=== PATIENT | female | born 1960 | race Caucasian/White ===

== ENCOUNTER 2018-06-15 22:30 | Outpatient (REF) | payer OTHER, SELFPAY ==
[2018-06-15 22:52] LABS: Anion Gap 8.4 mmol/L (3-11); BUN 22 mg/dL (7-18); CO2 26.6 mmol/L (21.0-32.0); CREATININE 1.12 mg/dL (0.55-1.02); Calcium 8.8 mg/dL (8.5-10.1); Chloride 104 mmol/L (98-107); Cholesterol 217 mg/dL (50-200); Estimated GFR 49.97 (mL/min/1.73m2); Glucose 89 mg/dL (70-100); HDL Cholesterol 30 mg/dL (40-60); LDL CHOLESTEROL 137 mg/dL (<100); Potassium 3.9 mmol/L (3.5-5.1); Sodium 139 mmol/L (136-145); Triglyceride 343 mg/dL (30-150)
== END 2018-06-15 22:50 ==
LOC: NCHCN 22:30
PROVIDERS: PCP Family Medicine; Visit Provider Family Medicine
DX: Z00.00 Encounter for general adult medical examination without abnormal findings (principal); Z13.228 Encounter for screening for other metabolic disorders; Z13.220 Encounter for screening for lipoid disorders
CPT/HCPCS: 80048; 80061; 83721

== ENCOUNTER 2018-10-27 12:25 | Outpatient (CLI) | payer OTHER, SELFPAY ==
--- NOTE | 2018-10-27 16:12 | DI.MAMMO_ITS ---
SYMPTOM/DIAGNOSIS: SCREENING, Z12.31 MAMMOGRAMS: Mammograms were interpreted according to the usual protocol including computer analysis with CAD system, tomosynthesis and C view imaging. The breasts are of moderate density with fairly symmetrical distribution of fibroglandular tissue. No dominant mass or clumped microcalcification is identified in either breast. The current examination is compared with previous examination of 06/28/13 which was an outside study. There is a new lobulated nodule in the upper outer quadrant of the left breast which probably represents an intramammary lymph node. I cannot absolutely confirm lymph node architecture and this was not present on the previous examination. Spot compression views and breast ultrasound are requested on the left to evaluate this finding. No additional change is seen. CONCLUSION: Additional mammographic views of left breast and left breast ultrasound are requested as described above. Category 0. Breast density, category B. MQSA ASSESSMENT OF FINDINGS: Incomplete: Needs additional imaging evaluation. Category 0. Patient will receive a letter notifying them of these results. BI-RADS category B. There are scattered areas of fibroglandular density.
== END 2018-10-27 12:45 ==
PROVIDERS: PCP Family Medicine; Visit Provider Family Medicine
DX: Z12.31 Encounter for screening mammogram for malignant neoplasm of breast (principal); R92.8 Other abnormal and inconclusive findings on diagnostic imaging of breast
CPT/HCPCS: 77063; 77067

== ENCOUNTER 2018-11-10 00:56 | Outpatient (CLI) | payer OTHER, SELFPAY ==
--- NOTE | 2018-11-10 10:30 | DI.COMBO_ITS ---
SYMPTOMS/DIAGNOSIS: F/U MAMMO, NEW LOBULATED NODULE IN UPPER OUTER QUADRANT ADDITIONAL VIEWS OF THE LEFT BREAST AND LEFT BREAST ULTRASOUND: Additional images are interpreted according to the usual protocol including tomosynthesis and 2D imaging. CC and MLO spot compression views were performed of an area of nodularity in the posterior upper outer quadrant. There is a 10 mm circumscribed lobulated nodule in the upper outer quadrant consistent with an intramammary lymph node. No suspicious masses are seen. No cyst or mass is identified by ultrasound. Lymph node could not be identified. IMPRESSION: Category 3, probably benign mammogram. A 6 month follow up left mammogram is recommended. Breast density Category B. MQSA ASSESSMENT OF FINDINGS: Probably benign. Six month follow-up recommended. Category 3. Patient will receive a letter notifying them of these results. BI-RADS category B. There are scattered areas of fibroglandular density.
== END 2018-11-10 01:16 ==
PROVIDERS: PCP Family Medicine; Visit Provider Family Medicine
DX: Z12.31 Encounter for screening mammogram for malignant neoplasm of breast (principal); R92.8 Other abnormal and inconclusive findings on diagnostic imaging of breast; N63.21 Unspecified lump in the left breast, upper outer quadrant
CPT/HCPCS: 76642; 77063; 77067

== ENCOUNTER 2019-01-09 08:56 | Day surgery (SDC) | payer OTHER, SELFPAY ==
--- NOTE | 2019-01-09 06:56 | W.COLOREPORT ---
Date of service: 01/09/19 Time of Service: 09:56 Colonoscopy Report Date of procedure: 01/09/19 Pre-op diagnosis general: Hx of colon Polyps Post-op diagnosis procedure note: other (mild diverticulosis, polyps) Procedure: Colonoscopy with polypectomy by cold forceps Surgeon: Fiorella Winn Anesthesia proc note operative: other (General/ ASA 2/ Jessica Vernon CRNA and Sarmad Isidro CRNA) Estimated blood loss (mL): 3 Pathology: other (ascending and descending polyps <0.5 cm) Complications: None Disposition: no change Indications: Mrs. Arguelles is a pleasant 58-year-old female who was seen in the office for a follow-up colonoscopy. She had a colonoscopy in 2013 and she was found to have a tubular adenoma. There is no family history of colon cancer. Risks, benefits and complications have been reviewed. Complications include but are not limited to bleeding, pain, perforation, missed small lesion/polyp, sore throat, aspiration and adverse reaction to the medications. Questions were entertained and answered to their satisfaction and they wished to proceed. No guarantees were given or implied. Prep: Miralax/Dulcolax Procedure Start Time: 09:56 Procedure End Time: 10:22 Retraction Time: 22 minutes Findings: 2 small sessile polyps mild sigmoid diverticulosis Procedure Description: After informed consent was obtained the patient was taken to the procedure room and placed in a left decubitous position. Monitors were applied and a time out was done. The patients name, date of , procedure, allergies to medications and metal in their body was reviewed. The patient was then sedated. Once sedated and comfortable a rectal exam was done. External exam was normal. Internal exam revealed a normal sphincter tone and no palpable masses. The scope was then introduced and retro-flexed. One internal hemorrhoidal skin tag was identified. The scope was then advanced to the cecum without difficulty. The TI and appendiceal orifice were identified. The prep was good. The scope was then slowly retracted over 22 minutes back into the rectum. Polyps were removed in the descending colon and ascending colon with cold forceps. There was mild diverticulosis noted in the sigmoid colon. The scope was removed and the patient was woken up and taken back to Same day surgery in stable condition. The patient tolerated the procedure well and there were no immediate complications. Follow up: The patient should follow up in 3-5 years unless they develop changes in bowel habits or other new gastrointestinal complaints.
--- NOTE | 2019-01-09 06:58 | W.PM.DSUDISC ---
Discharge Plan Disposition Patient Disposition: HOME Condition: Good Discharge Details Reason For Visit: Hx of polyps/screening colo Attending Provider: Fiorella Winn Primary Care Provider: Malu Thakur Home Meds and New Rx's Prescriptions: Continued losartan-hydrochlorothiazide [Hyzaar] 50-12.5 mg tablet 1 tab PO DAILY RF: 0 propranolol 10 mg tablet 10 mg PO BID PRNRF: 0 eletriptan 20 mg tablet 20 mg PO ONCE PRNRF: 0 clobetasol 0.05 % lotion 1 applic TP BID PRNRF: 0 Discontinued polyethylene glycol 3350 17 gram/dose powder 238 g PO ONCE Qty: 238 RF: 0 bisacodyl [Dulcolax (bisacodyl)] 5 mg tablet,delayed release (DR/EC) 5 mg PO ONCE Qty: 4 RF: 0 Discharge Instructions Instructions: Colonoscopy (DC), Colorectal Polyps (DC), Diverticulosis (DC) Additional Instructions: Findings: 2 small polyps mild diverticulosis Follow up: 3-5 years Please call if you develop: fevers >101.5 Nausea or Vomiting Abdominal pain that is not transient DAY SURGERY UNIT POST COLONOSCOPY INSTRUCTIONS 1. Because there will be medication in your system for the next 24 hours, you may feel a little sleepy. Your coordination will be affected. Therefore: a. Do not drive or operate dangerous equipment for 24 hours. b. Do not drink alcohol beverages for 24 hours (not even beer). c. Plan to go home and rest for the day. 2. Generally there are no restrictions on your activity after a day or so has gone by, but you may feel a bit fatigued for a few days. 3 After you arrive home you may have a light meal and return to a normal diet as you can tolerate it without feeling sick to your stomach. 4. After surgery, you may feel pain or discomfort. This should be only transient, but if it persists please contact your doctor. 5. If there are any questions regarding the findings of your procedure, please feel free to contact your doctor. 6. If you are unable to contact your doctor with a problem, contact the hospital at [phone]. 7. Continue all your regular medications unless directed otherwise. I understand the above instructions and have no questions. Signature of Patient or Responsible Adult Escort Date/Time Name of Responsible Adult Escort Signature of Nurse Date/Time Activity:: Activity as Tolerated Diet:: high fiber diet Discharge Orders Discharge Orders: Discharge Order (Routine); Ordered 01/09/19 Ordered By: Fiorella Winn DS: Diagnosis Discharge Diagnosis (1) Tubular adenoma: Status: Acute (2) S/P colonoscopy: Status: Acute
[2019-01-09 09:20] VITALS: BP 133/92; PULSE 69; RESP 16; TEMP 35.5; O2SAT 99
[2019-01-09] MEDS: Lactated Ringers 1,000 ML 80 ML IV (09:42)
--- NOTE | 2019-01-09 10:11 | BOWEL_PTH ---
PATIENT: Delilah Arguelles LOC: [facility] U#:[id number] AGE/SX: 58/F ROOM: RE01/09/[address]: Fiorella Winn MD : 1960 BED: DIS: 01/09/2019 SPEC #: [id number] RECD: 01/09/19 12:50 STATUS: SHA REQ #: [id number] CHELITA: 01/09/19 10:[address]: Fiorella Winn DEPT: Surgical Specimen RECD BY: Debbie Galeana ENTERED: 01/09/19 12:50 SP TYPE: Bowel OTHR DR: Malu Thakur Tissues: 1 - BIOPSY BOWEL 2 - BIOPSY BOWEL Procedures: GROSS AND MICRO LEVEL 4 Comments: [id number]
[2019-01-09 11:03] VITALS: BP 128/77; PULSE 60; RESP 16; TEMP 35.6; O2SAT 98
== END 2019-01-09 11:22 | disposition home or self-care (01) ==
LOC: SUR 08:57
PROVIDERS: PCP Family Medicine; Visit Provider Surgery
PROC: 0DJD8ZZ Inspection of Lower Intestinal Tract, Via Natural or Artificial Opening Endoscopic (ICD-10-PCS; CPT 45378; principal; 2019-01-09 10:00)
DX: Z12.11 Encounter for screening for malignant neoplasm of colon (principal); D12.6 Benign neoplasm of colon, unspecified; K63.5 Polyp of colon; K64.4 Residual hemorrhoidal skin tags; K57.30 Diverticulosis of large intestine without perforation or abscess without bleeding; Z86.010 Personal history of colon polyps; I10 Essential (primary) hypertension; G47.33 Obstructive sleep apnea (adult) (pediatric)
CPT/HCPCS: 45380; 88305

== ENCOUNTER 2019-05-08 01:14 | Outpatient (CLI) | payer OTHER, SELFPAY ==
--- NOTE | 2019-05-08 15:06 | DI.MAMMO_ITS ---
SYMPTOM/DIAGNOSIS: ABNORMAL MAMMO LT BREAST R92.8, 6 MO FU LEFT MAMMOGRAM: This is a 6-month follow up from October 2018. Mammograms were interpreted according to the usual protocol including computer analysis with CAD system, tomosynthesis and C view imaging. The left breast is composed of scattered fibroglandular densities, breast density Category B. There has been no change in the lymph node in the posterior upper outer quadrant of the left breast. No suspicious masses or suspicious calcifications are seen. IMPRESSION: Category 2, negative mammogram with benign findings. Yearly screening mammography is recommended. Breast density category B. MQSA ASSESSMENT OF FINDINGS: Negative with benign findings. Category 2. Patient will receive a letter notifying them of these results. BI-RADS category B. There are scattered areas of fibroglandular density.
== END 2019-05-08 01:34 ==
PROVIDERS: PCP Family Medicine; Visit Provider Family Medicine
DX: Z12.31 Encounter for screening mammogram for malignant neoplasm of breast (principal); R92.8 Other abnormal and inconclusive findings on diagnostic imaging of breast; N64.59 Other signs and symptoms in breast; R59.0 Localized enlarged lymph nodes
CPT/HCPCS: 77061; 77065; G0279

== ENCOUNTER 2019-05-18 10:21 | Outpatient (REF) | payer OTHER, SELFPAY ==
[2019-05-18 21:27] LABS: Anion Gap 10.4 mmol/L (3-11); BUN 21 mg/dL (7-18); CO2 25.6 mmol/L (21.0-32.0); CREATININE 1.04 mg/dL (0.55-1.02); Calcium 9.1 mg/dL (8.5-10.1); Chloride 105 mmol/L (98-107); Estimated GFR 54.24 (mL/min/1.73m2); Glucose 85 mg/dL (70-100); Potassium 3.8 mmol/L (3.5-5.1); Sodium 141 mmol/L (136-145)
[2019-05-18 21:39] LABS: Hemoglobin A1C 5.8 % (4.5-6.2)
== END 2019-05-18 10:41 ==
LOC: NCHCN 10:21
PROVIDERS: PCP Family Medicine; Visit Provider Family Medicine
DX: I10 Essential (primary) hypertension (principal)
CPT/HCPCS: 80048; 83036

== ENCOUNTER 2020-03-25 13:36 | Outpatient (REF) | payer OTHER, SELFPAY ==
--- NOTE | 2020-03-25 11:55 | SKI_PTH ---
PATIENT: Delilah Arguelles LOC: [facility] U#:[id number] AGE/SX: 60/F ROOM: RE03/25/[address]: Yoon Giron : 1960 BED: DIS: 03/25/2020 SPEC #: [id number] RECD: 03/26/20 12:11 STATUS: SHA REFarnaz #: [id number] CHELITA: 03/25/20 11:[address]: Yoon Giron DEPT: Surgical Specimen RECD BY: Debbie Galeana ENTERED: 03/26/20 12:12 SP TYPE: ALMITA OSEI DR: Malu Thakur Tissues: 1 - SKIN BIOPSY(SHAVE/PUNCH) Procedures: SKIN LEVEL 4 Comments: [id number]
== END 2020-03-25 13:56 ==
LOC: NCHCN 13:36
PROVIDERS: PCP Family Medicine; Visit Provider Nurse Practitioner Family
DX: L82.0 Inflamed seborrheic keratosis (principal)
CPT/HCPCS: 88305

== ENCOUNTER 2021-03-14 02:40 | Outpatient (CLI) | payer OTHER, SELFPAY ==
--- NOTE | 2021-03-14 | DI.MAMMO_ITS ---
Exam(s) MAMMO SCREENING EXAM: MAMMO SCREENING CLINICAL HISTORY: SCREENING, Z12.39 TECHNIQUE: Mammograms were interpreted according to the usual protocol including computer analysis w [employer] CAD system, tomosynthesis and C-view imaging. COMPARISON: FINDINGS: Breasts are of moderate density with fairly symmetrical distribution of fibroglandular tissue. No do minant mass or clumped microcalcification is identified in either breast. There is a skin lesion fernando ntified at the lateral aspect of the right breast superiorly seen on the MLO view and this was confir med in location with a skin marker. Patient reports it is a recurring lesion which she has had for s everal years. No subjacent intramammary mass seen. Current examination is compared with previous examinations including October 2018 and there has been no gross interval change appearance comparison with previous studies. IMPRESSION: No specific evidence of malignancy at this time. Routine screening examinations are suggested at yea rly intervals due to the family history of breast carcinoma. BI-RADS Category 1 - Negative Breast Density - Category B - Scattered areas of fibroglandular density
== END 2021-03-14 03:00 ==
PROVIDERS: PCP Family Medicine; Visit Provider Family Medicine
DX: Z12.31 Encounter for screening mammogram for malignant neoplasm of breast (principal); R92.8 Other abnormal and inconclusive findings on diagnostic imaging of breast; Z80.3 Family history of malignant neoplasm of breast
CPT/HCPCS: 77063; 77067

== ENCOUNTER 2021-08-01 09:57 | Outpatient (CLI) | payer OTHER, SELFPAY ==
--- NOTE | 2021-08-01 09:30 | DI.RAD_ITS ---
Exam(s) XR KNEE LT 3V AP,LAT,CHIQUI EXAM: XR KNEE LT 3V AP,LAT,CHIQUI CLINICAL HISTORY: LEFT KNEE PAIN. TECHNIQUE: 2D digital imaging was performed. COMPARISON: No exams were available for comparison FINDINGS: BONES: No acute fracture is present. No bony destructive lesion is seen. JOINTS: Mild narrowing medial femoral tibial joint space. Mild periarticular spurring. Femoral tibi al joints and patellofemoral joint. The knee is normally aligned. No joint effusion is seen. SOFT TISSUE: Normal. IMPRESSION: Mild degenerative changes. DATA REPOSITORY: RADIATION DOSE DELIVERED:
== END 2021-08-01 09:58 | disposition home or self-care (01) ==
LOC: DIORS 09:58
PROVIDERS: PCP Family Medicine; Referring Provider Family Medicine; Visit Provider Student in an Organized Health Care Education/Training Program
DX: M25.562 Pain in left knee (principal)
CPT/HCPCS: 73562

== ENCOUNTER 2021-12-25 09:02 | Outpatient (REF) | payer OTHER, SELFPAY ==
--- NOTE | 2021-12-25 07:45 | PAPFT_PTH ---
PATIENT: Delilah Arguelles LOC: [facility]#:[id number] AGE/SX: 61/F ROOM: RE12/25/[address]: Mary Bhatt : 1960 BED: DIS: 12/25/2021 SPEC #: [id number] RECD: 12/25/21 17:34 STATUS: [place] REFarnaz #: [id number] CHELITA: 12/25/21 07:[address]: Mary Jose DEPT: [facility] Cytology RECD BY: Debbie Galeana ENTERED: 12/25/21 17:34 SP TYPE: PAPFT OTHR DR: Malu Thakur Tissues: 1 - CX/ENDOCX FOR PAP SMEARS Procedures: PAP THIN PREP/UVM Screening HPV DNA PROBE Comments: [id number]
--- NOTE | 2021-12-25 07:45 | VAG_PTH ---
PATIENT: Delilah Arguelles LOC: [facility]#:[id number] AGE/SX: 61/F ROOM: RE12/25/[address]: Mary Bhatt : 1960 BED: DIS: 12/25/2021 SPEC #: [id number] RECD: 12/25/21 17:23 STATUS: SHA REQ #: [id number] CHELITA: 12/25/21 07:[address]: Mary Jose DEPT: Surgical Specimen RECD BY: Debbie Galeana ENTERED: 12/25/21 17:23 SP TYPE: VAG OTHR DR: Malu Thakur Tissues: 1 - VAGINAL BIOPSY Procedures: GROSS AND MICRO LEVEL 4 Comments: [id number]
== END 2021-12-25 09:03 | disposition home or self-care (01) ==
LOC: NCHCN 09:02
PROVIDERS: PCP Family Medicine; Visit Provider Nurse Practitioner Family
DX: Z12.4 Encounter for screening for malignant neoplasm of cervix (principal); Z11.51 Encounter for screening for human papillomavirus (HPV); N84.2 Polyp of vagina; N95.0 Postmenopausal bleeding
CPT/HCPCS: 88142; 88305; 87624

== ENCOUNTER 2021-12-26 02:37 | Outpatient (CLI) | payer OTHER, SELFPAY ==
[2021-12-26 09:39] LABS: Hemoglobin A1C 5.3 % (<5.7)
[2021-12-26 09:58] LABS: ALT 42 U/L (14-59); AST 24 U/L (15-37); Albumin 3.6 g/dL (3.4-5.0); Alkaline Phosphatase 92 U/L (46-116); BUN 24 mg/dL (7-18); Bilirubin, Total 0.4 mg/dL (0.2-1.0); CREATININE 1.1 mg/dL (0.55-1.02); Calcium 9.1 mg/dL (8.5-10.1); Calculated LDL 94 mg/dL (<100); Chloride 104 mmol/L (98-107); Cholesterol 177 mg/dL (<200); Glucose 98 mg/dL (74-106); HDL Cholesterol 31 mg/dL (40-60); Potassium 3.8 mmol/L (3.5-5.1); Sodium 141 mmol/L (136-145); Total Protein 7.1 g/dL (6.4-8.2); Triglyceride 260 mg/dL (<150)
== END 2021-12-26 02:38 | disposition home or self-care (01) ==
LOC: LBO 02:37
PROVIDERS: PCP Family Medicine; Visit Provider Family Medicine
DX: I10 Essential (primary) hypertension (principal); E78.5 Hyperlipidemia, unspecified; Z13.1 Encounter for screening for diabetes mellitus
CPT/HCPCS: 36415; 80053; 80061; 83036

== ENCOUNTER 2023-01-20 17:03 | Outpatient (REF) | payer OTHER, SELFPAY ==
[2023-01-20 21:56] LABS: Anion Gap 11.4 mmol/L (3-11); BUN 25 mg/dL (7-18); CO2 26.6 mmol/L (21.0-32.0); CREATININE 1.1 mg/dL (0.55-1.02); Calcium 9.8 mg/dL (8.5-10.1); Calculated LDL 115 mg/dL (<100); Chloride 104 mmol/L (98-107); Cholesterol 222 mg/dL (<200); Estimated GFR 56.81 (mL/min/1.73m2); Glucose 110 mg/dL (74-106); HDL Cholesterol 32 mg/dL (40-60); Potassium 3.5 mmol/L (3.5-5.1); Sodium 142 mmol/L (136-145); Triglyceride 378 mg/dL (<150)
[2023-01-20 22:02] LABS: Hemoglobin A1C 5.5 % (<5.7)
== END 2023-01-20 17:04 | disposition home or self-care (01) ==
LOC: NCHCN 17:03
PROVIDERS: PCP Family Medicine; Visit Provider Family Medicine
DX: Z00.00 Encounter for general adult medical examination without abnormal findings (principal); E78.6 Lipoprotein deficiency; I10 Essential (primary) hypertension; N28.9 Disorder of kidney and ureter, unspecified; E66.01 Morbid (severe) obesity due to excess calories; Z13.1 Encounter for screening for diabetes mellitus
CPT/HCPCS: 80048; 80061; 83036

== ENCOUNTER 2023-02-17 02:56 | Outpatient (CLI) | payer OTHER, SELFPAY ==
--- NOTE | 2023-02-17 | DI.MAMMO_ITS ---
Exam(s) MAMMO SCREENING EXAM: MAMMO SCREENING CLINICAL HISTORY: SCREENING, Z12.39 TECHNIQUE: Bilateral full field digital CC and MLO mammographic images were obtained with 3D tomosyn thesis and utilizing computer aided detection (CAD). COMPARISON: Available for comparison. FINDINGS: Masses/Architectural Distortion: There are 2 stable nodules in the upper outer quadrant of the right breast. No suspicious masses are seen. No areas of architectural distortion are identified. Microcalcifications: No suspicious pleomorphic-type are seen. Skin Thickening/Nipple Retraction: None. IMPRESSION: 1. No significant interval change with no specific features of malignancy noted. 2. Unless there is more urgent need, screening mammography is recommended, as per [employer] guidelines. BI-RADS Category 1 - Negative Breast Density - Category B - Scattered areas of fibroglandular density Breast density category C or D implies that the patient has dense breast tissue. Dense breast tissue is very common and is not abnormal but dense breast tissue can make it harder to find cancer on a ma mmogram. Also, dense breast tissue may increase their breast cancer risk. This information about the result of the mammogram report was provided to the patient to raise their awareness. Use this report when you speak with the patient about their risks for breast cancer, which includes their family hist ory. At that time, you may recommend for more screening tests (Ultrasound or MRI) as they might be us eful based on their risk. A negative radiographic report should not delay biopsy if a dominant or clinically suspicious mass is present. Up to ten percent of cancers are not identified on mammography. A negative report may reinforce clinical impression. Adenosis and dense breasts may obscure an underlying neoplasm. False positive reports average 6 to 10%. Patient will receive a letter notifying them of these results.
== END 2023-02-17 03:16 ==
LOC: DI 02:56
PROVIDERS: PCP Family Medicine; Visit Provider Family Medicine
DX: Z12.31 Encounter for screening mammogram for malignant neoplasm of breast (principal)
CPT/HCPCS: 77063; 77067

== ENCOUNTER 2024-01-24 07:38 | Emergency (ER) | payer OTHER, SELFPAY ==
[2024-01-24] VITALS (7 sets, daily range): BP systolic 174–181; BP diastolic 98–101; PULSE 63–80; RESP 12–22; TEMP 36.9; O2SAT 98
--- NOTE | 2024-01-24 07:45 | DI.MRI_ITS ---
Exam(s) MR BRAIN WO EXAM: MR BRAIN WO CLINICAL HISTORY: dizzy TECHNIQUE: Multiplanar multisequence MRI of the brain was performed. COMPARISON: No exams were available for comparison FINDINGS: VENTRICLES AND EXTRA AXIAL SPACES: Normal in size and morphology for the patient's age. MIDLINE SHIFT: None. CEREBRAL PARENCHYMA: No focus of restricted diffusion to suggest acute infarct. No space-occupying le kitty identified. There are few foci of hyperintense signal seen in the white matter on the FLAIR and T2 weighted images most suggestive of chronic microvascular ischemic disease. HEMORRHAGE: None. BRAINSTEM/CEREBELLUM: Normal. CALVARIUM: Normal. VISUALIZED PARANASAL SINUSES/MASTOIDS:There is fluid seen in the mastoid air cells bilaterally, left greater than right left. [place]: Normal flow void. PITUITARY GLAND: Unremarkable. No evidence of a suprasellar mass is seen. OTHER FINDINGS: There is what looks like artifact involving the left optic nerve. It is only seen on the T1 weighted images. The axial and sagittal T2 weighted images appear grossly unremarkable. This m ay represent volume averaging. If there is continued concern an MRI of the orbits may be obtained. IMPRESSION: 1. Bilateral mastoiditis, left greater than right. 2. No evidence of an acute territorial infarct. 3. Few foci of hyperintense signal seen in the white matter most suggestive of chronic microvascular ischemic disease. 4. Findings were discussed with Dr. Wesley at 9:05 a.m. on 01/24/2024. DATA REPOSITORY:
[2024-01-24] MEDS: Meclizine 25 MG TAB PO (07:53)
[2024-01-24 08:17] LABS: Abs Immature Grans 0.03 10^3/uL (0.0-0.06); Absolute Basophil Count 0.04 10^3/uL (0.0-0.2); Absolute Eosinophil Count 0.14 10^3/uL (0.0-0.7); Absolute Lymphocyte Count 1.29 10^3/uL (1.2-3.4); Absolute Monocyte Count 0.55 10^3/uL (0.1-0.8); Absolute Neutrophil Count 4.84 10^3/uL (1.2-6.7); Basophils % 0.6 %; HGB 13.7 g/dL (11.2-15.7); Immature Grans % 0.4 %; Lymphocytes % 18.7 %; MCH 27.3 pg (27.0-33.0); MCHC 31.9 % (32.0-36.0); MCV 86 fL (80-95); MPV 9.5 fL (8.0-11.0); Neutrophils % 70.3 %; Platelet Count 272 10^3/uL (130-400); RBC 5.02 10^6/uL (3.93-5.22); RDW 14.2 % (11.7-14.6); RDW-SD 44.5 fL; WBC 6.89 10^3/uL (4.4-10.8)
[2024-01-24 08:30] LABS: PTT Activated 30.5 sec (23.6-32.8); Prothrombin Time 9.7 sec (9.1-11.1)
[2024-01-24 08:47] LABS: ALT 36 U/L (14-59); AST 18 U/L (15-37); Albumin 3.5 g/dL (3.4-5.0); Alkaline Phosphatase 86 U/L (46-116); Anion Gap 10.8 mmol/L (3-11); BUN 18 mg/dL (7-18); Bilirubin, Total 0.4 mg/dL (0.2-1.0); CO2 25.2 mmol/L (21.0-32.0); Calcium 9.2 mg/dL (8.5-10.1); Chloride 107 mmol/L (98-107); Glucose 110 mg/dL (74-106); Magnesium 2.3 mg/dL (1.8-2.4); Potassium 3.6 mmol/L (3.5-5.1); Sodium 143 mmol/L (136-145); TSH 1.54 uIU/Ml (0.36-3.74); Total Protein 7.5 g/dL (6.4-8.2); Troponin I < 50 ng/L (< or =60)
[2024-01-24 09:12] LABS: Bilirubin Negative (Negative); Blood Trace-intact (Negative); Clarity Clear (Clear); Glucose Negative (Negative); Ketones Negative (Negative); Leukocyte Esterase Small (Negative); Nitrite Negative (Negative); Urobilinogen 0.2 mg/dL (Up to 0.2)
[2024-01-24 09:18] LABS: Bacteria Rare HPF (Negative); C & S Indicated? No; Casts Negative LPF (Negative); Crystals Negative HPF (Negative); Epithelial Cells Moderate HPF (Negative); Mucus Trace (Negative); RBC 0-2 HPF (0-2)
[2024-01-24] MEDS: Ketorolac 15 MG/ML VIAL 10 MG IVP (09:20)
--- NOTE | 2024-01-24 10:03 | DI.VRAD_ITS ---
PROCEDURE INFORMATION: Exam: MR Head Without Contrast Exam date and time: 01/24/2024 8:27 AM Age: 63 years old Clinical indication: Dizziness. No history of recent trauma or surgery is provided. TECHNIQUE: Imaging protocol: Magnetic resonance imaging of the head without contrast. 548image(s) are provided. Other technique: Multiplanar, multisequence images are provided. COMPARISON: No relevant prior studies are currently available to evaluate for stability or interval change. FINDINGS: Brain: There are moderate cerebral atrophic changes overall.There are some chronic periventricular white matter changes present.No mass effect or layering hemorrhage is appreciated. Weiss, white matter differentiation appears maintained.The diffusion-weighted images are negative for acute diffuse ischemia.Symmetric appearance of the internal auditory canal structures is demonstrated. Symmetric appearance of the optic chiasm is demonstrated along with midline pituitary stalk. Cerebral ventricles: No hydrocephalus is appreciated. Pituitary gland and sella: There appear to be some subcentimeter cystic, fluid intense foci of the inferior pituitary, sella margin on the sagittal sequence. Bones: No diffuse acute abnormal marrow signal intensity is appreciated. Paranasal sinuses: There appears to be some patchy ethmoidal air cell mucosal thickening. There is some slight mucosal thickening of the inferior aspect of the maxillary sinuses more so on the left. Mastoid air cells: There is some mucosal thickening, fluid of the mastoid air cells patchy appearance of the right although predominant overall on the left. The external auditory canals appear relatively symmetric overall. Orbital cavities: Symmetric appearance of the orbital soft tissues is demonstrated. Vasculature: The central vascular flow voids are demonstrated. Soft tissues: No subcutaneous organized fluid collections are currently appreciated. Other findings: There is some motion artifact present. IMPRESSION: 1. No parenchymal mass effect, evidence of acute ischemia or hydocephalus is demostrated. No acute intracranial changes are appreciated. 2. There is some opacification of the mastoid air cells more so on the left. Some processes including mastoiditis with the associated inflammation could present in this fashion. 3. There are some subcentimeter cystic appearing foci of the posteroinferior aspect of the pituitary, sella on the sagittal sequence. Consider pituitary MRI with and without contrast for further evaluation. Dictated and Authenticated by: Jaguar Verdugo MD. Ordering:REMIGIO Yadav MD
--- NOTE | 2024-01-24 13:00 | W.ED.GENAD ---
Discharge Plan Disposition Patient Disposition: Home Discharge Details Clinical Impression: Dizziness, Hypertension Primary Care Provider: Malu Thakur ED Provider: Dougie Wesley Home Meds and New Rx's Prescriptions: No Action losartan-hydrochlorothiazide [Hyzaar] 50-12.5 mg tablet 1 tab PO DAILY propranolol 10 mg tablet 10 mg PO BID PRN eletriptan 20 mg tablet 20 mg PO ONCE PRN clobetasol 0.05 % lotion 1 applic TP BID PRN aspirin [Adult Aspirin Regimen] 81 mg tablet,delayed release (DR/EC) 81 mg PO DAILY Discharge Instructions Instructions: Dizziness (ED) Additional Instructions: MRI doesn't demonstrate stroke or other acute change take meclizine as needed for dizziness make sure to drink plenty of water take your blood pressure daily, if continues to be high, please follow up with PCP to have your medicines adjusted HPI General Date/Time Provider Initiated Documentation: 01/24/24 07:45. Limitations to Documentation: no limitations. Information obtained by: patient. HPI Narrative: 63-year-old female with past medical history of hypertension, migraines presents for evaluation of dizziness. She reports that she had the symptoms a few days ago with recurrence this morning. She states that she felt fine when she woke up this morning and then after arrival at work, she started to feel dizzy. She reports that she felt unsteady on her feet. Her blood pressure was noted to be elevated. She states that she feels like her vision is closing in, but denies any lack of vision, floaters or loss of vision. Denies any headache. She states that she does have history of ocular migraines, but she states she usually does get a headache after the onset of the other visual symptoms. Denies any chest pain or shortness of breath. Related Data Home Medications Medication Instructions Recorded Confirmed losartan 50 mg-hydrochlorothiazide 1 tab PO DAILY 10/27/18 01/24/24 12.5 mg tablet (Hyzaar) clobetasol 0.05 % lotion 1 applic topical BID PRN 12/16/18 01/24/24 eletriptan 20 mg tablet 20 mg PO ONCE PRN 12/16/18 01/24/24 propranolol 10 mg tablet 10 mg PO BID PRN 12/16/18 01/24/24 aspirin 81 mg tablet,delayed 81 mg PO DAILY 08/01/21 01/24/24 release (Adult Aspirin Regimen) Allergies Allergy/AdvReac Type Severity Reaction Status Date / Time No Known Allergies Allergy Verified 01/24/24 07:44 General Stated Complaint: Dizzy/Sync KRYS: 3 Exam Narrative Exam Narrative: Review of Systems: All systems reviewed & are unremarkable except as noted in HPI and below Well-developed, no acute distress NCAT PERRL, normal conjunctiva + Horizontal nystagmus, more so when looking right RRR, no murmur Unlabored respiratory effort, clear bilaterally Nondistended abdomen , nontender Extremities w/o deformity, no cyanosis, no edema No rashes or lesions. no focal neurologic deficits, normal speech no past-pointing, observed gait and is noted to be steady Appropriate mood and affect Course Vital Signs Vital signs: Vital Signs Temperature 36.9 C 01/24/24 07:41 Pulse 80 01/24/24 07:41 Respiratory Rate 18 01/24/24 07:41 Blood Pressure 181/98 H 01/24/24 07:41 Pulse Oximetry 98 01/24/24 07:41 Temperature 36.9 C 01/24/24 07:41 Pulse 69 01/24/24 09:02 Pulse 63 01/24/24 09:20 Respiratory Rate 17 01/24/24 09:20 Respiratory Effort Normal, Non-Labored 01/24/24 07:47 Respiratory Depth Normal 01/24/24 07:47 Blood Pressure 174/101 H 01/24/24 09:02 Blood Pressure Mean 125 01/24/24 09:02 Pulse Oximetry 98 01/24/24 07:41 Oxygen Delivery Method Room Air 01/24/24 07:41 Oxygen Flow Rate 0 01/24/24 07:41 Pain Level 3 01/24/24 09:20 Lab/Test Results Lab/Test Results: Laboratory Tests Range/Units 01/24/24 01/24/24 01/24/24 08:05 08:05 08:05 WBC (4.4-10.8) 10^3/uL 6.89 RBC (3.93-5.22) 10^6/uL 5.02 Hgb (11.2-15.7) g/dL 13.7 Hct (36.0-46.0) % 43.0 MCV (80-95) fL 86 MCH (27.0-33.0) pg 27.3 MCHC (32.0-36.0) % 31.9 L RDW (11.7-14.6) % 14.2 Plt Count (130-400) 10^3/uL 272 MPV (8.0-11.0) fL 9.5 Immature Gran % % 0.4 Neutrophils % % 70.3 Lymphocytes % % 18.7 Monocytes % % 8.0 Eosinophils % % 2.0 Basophils % % 0.6 Nucleated RBC % (0.0-0.3) % 0.0 Absolute Neutrophils (1.2-6.7) 10^3/uL 4.84 Absolute Lymphocytes (1.2-3.4) 10^3/uL 1.29 Absolute Monocytes (0.1-0.8) 10^3/uL 0.55 Absolute Eosinophils (0.0-0.7) 10^3/uL 0.14 Absolute Basophils (0.0-0.2) 10^3/uL 0.04 PT (9.1-11.1) sec 9.7 INR (0.9-1.1) 1.0 APTT (23.6-32.8) sec 30.5 Sodium (136-145) mmol/L 143 Cancelled Potassium (3.5-5.1) mmol/L 3.6 Cancelled Chloride (98-107) mmol/L 107 Carbon Dioxide (21.0-32.0) mmol/L Anion Gap (3-11) mmol/L BUN (7-18) mg/dL Creatinine (0.55-1.02) mg/dL Est GFR (CKD-EPI 2020) (mL/min/1.73m2) Glucose (74-106) mg/dL Calcium (8.5-10.1) mg/dL Magnesium (1.8-2.4) mg/dL Total Bilirubin (0.2-1.0) mg/dL AST (15-37) U/L ALT (14-59) U/L Alkaline Phosphatase (46-116) U/L Troponin I (< or =60) ng/L Total Protein (6.4-8.2) g/dL Albumin (3.4-5.0) g/dL TSH (0.36-3.74) uIU/Ml Urine Color (Yellow) Urine Clarity (Clear) Urine pH (5-8) Ur Specific [place] (1.005-1.025) Urine Protein (Neg-Trace) mg/dL Urine Ketones (Negative) mg/dL Urine Blood (Negative) Urine Nitrite (Negative) Urine Bilirubin (Negative) Urine Urobilinogen (Up to 0.2) mg/dL Ur Leukocyte Esterase (Negative) Urine RBC (0-2) HPF Urine WBC (0-5) HPF Ur Epithelial Cells (Negative) HPF Urine Crystals (Negative) HPF Urine Bacteria (Negative) HPF Urine Casts (Negative) LPF Urine Mucus (Negative) Ur Culture Indicated? Urine Glucose (Negative) mg/dL Range/Units 01/24/24 01/24/24 01/24/24 08:05 08:05 08:05 WBC (4.4-10.8) 10^3/uL RBC (3.93-5.22) 10^6/uL Hgb (11.2-15.7) g/dL Hct (36.0-46.0) % MCV (80-95) fL MCH (27.0-33.0) pg MCHC (32.0-36.0) % RDW (11.7-14.6) % Plt Count (130-400) 10^3/uL MPV (8.0-11.0) fL Immature Gran % % Neutrophils % % Lymphocytes % % Monocytes % % Eosinophils % % Basophils % % Nucleated RBC % (0.0-0.3) % Absolute Neutrophils (1.2-6.7) 10^3/uL Absolute Lymphocytes (1.2-3.4) 10^3/uL Absolute Monocytes (0.1-0.8) 10^3/uL Absolute Eosinophils (0.0-0.7) 10^3/uL Absolute Basophils (0.0-0.2) 10^3/uL PT (9.1-11.1) sec INR (0.9-1.1) APTT (23.6-32.8) sec Sodium (136-145) mmol/L Potassium (3.5-5.1) mmol/L Chloride (98-107) mmol/L Cancelled Carbon Dioxide (21.0-32.0) mmol/L 25.2 Cancelled Anion Gap (3-11) mmol/L 10.8 Cancelled BUN (7-18) mg/dL 18 Creatinine (0.55-1.02) mg/dL Est GFR (CKD-EPI 2020) (mL/min/1.73m2) Glucose (74-106) mg/dL Calcium (8.5-10.1) mg/dL Magnesium (1.8-2.4) mg/dL Total Bilirubin (0.2-1.0) mg/dL AST (15-37) U/L ALT (14-59) U/L Alkaline Phosphatase (46-116) U/L Troponin I (< or =60) ng/L Total Protein (6.4-8.2) g/dL Albumin (3.4-5.0) g/dL TSH (0.36-3.74) uIU/Ml Urine Color (Yellow) Urine Clarity (Clear) Urine pH (5-8) Ur Specific [place] (1.005-1.025) Urine Protein (Neg-Trace) mg/dL Urine Ketones (Negative) mg/dL Urine Blood (Negative) Urine Nitrite (Negative) Urine Bilirubin (Negative) Urine Urobilinogen (Up to 0.2) mg/dL Ur Leukocyte Esterase (Negative) Urine RBC (0-2) HPF Urine WBC (0-5) HPF Ur Epithelial Cells (Negative) HPF Urine Crystals (Negative) HPF Urine Bacteria (Negative) HPF Urine Casts (Negative) LPF Urine Mucus (Negative) Ur Culture Indicated? Urine Glucose (Negative) mg/dL Range/Units 01/24/24 01/24/24 01/24/24 08:05 08:05 08:05 WBC (4.4-10.8) 10^3/uL RBC (3.93-5.22) 10^6/uL Hgb (11.2-15.7) g/dL Hct (36.0-46.0) % MCV (80-95) fL MCH (27.0-33.0) pg MCHC (32.0-36.0) % RDW (11.7-14.6) % Plt Count (130-400) 10^3/uL MPV (8.0-11.0) fL Immature Gran % % Neutrophils % % Lymphocytes % % Monocytes % % Eosinophils % % Basophils % % Nucleated RBC % (0.0-0.3) % Absolute Neutrophils (1.2-6.7) 10^3/uL Absolute Lymphocytes (1.2-3.4) 10^3/uL Absolute Monocytes (0.1-0.8) 10^3/uL Absolute Eosinophils (0.0-0.7) 10^3/uL Absolute Basophils (0.0-0.2) 10^3/uL PT (9.1-11.1) sec INR (0.9-1.1) APTT (23.6-32.8) sec Sodium (136-145) mmol/L Potassium (3.5-5.1) mmol/L Chloride (98-107) mmol/L Carbon Dioxide (21.0-32.0) mmol/L Anion Gap (3-11) mmol/L BUN (7-18) mg/dL Cancelled Creatinine (0.55-1.02) mg/dL 1.0 Cancelled Est GFR (CKD-EPI 2020) (mL/min/1.73m2) 63.30 Cancelled Glucose (74-106) mg/dL 110 H Calcium (8.5-10.1) mg/dL Magnesium (1.8-2.4) mg/dL Total Bilirubin (0.2-1.0) mg/dL AST (15-37) U/L ALT (14-59) U/L Alkaline Phosphatase (46-116) U/L Troponin I (< or =60) ng/L Total Protein (6.4-8.2) g/dL Albumin (3.4-5.0) g/dL TSH (0.36-3.74) uIU/Ml Urine Color (Yellow) Urine Clarity (Clear) Urine pH (5-8) Ur Specific [place] (1.005-1.025) Urine Protein (Neg-Trace) mg/dL Urine Ketones (Negative) mg/dL Urine Blood (Negative) Urine Nitrite (Negative) Urine Bilirubin (Negative) Urine Urobilinogen (Up to 0.2) mg/dL Ur Leukocyte Esterase (Negative) Urine RBC (0-2) HPF Urine WBC (0-5) HPF Ur Epithelial Cells (Negative) HPF Urine Crystals (Negative) HPF Urine Bacteria (Negative) HPF Urine Casts (Negative) LPF Urine Mucus (Negative) Ur Culture Indicated? Urine Glucose (Negative) mg/dL Range/Units 01/24/24 01/24/24 01/24/24 08:05 08:05 08:05 WBC (4.4-10.8) 10^3/uL RBC (3.93-5.22) 10^6/uL Hgb (11.2-15.7) g/dL Hct (36.0-46.0) % MCV (80-95) fL MCH (27.0-33.0) pg MCHC (32.0-36.0) % RDW (11.7-14.6) % Plt Count (130-400) 10^3/uL MPV (8.0-11.0) fL Immature Gran % % Neutrophils % % Lymphocytes % % Monocytes % % Eosinophils % % Basophils % % Nucleated RBC % (0.0-0.3) % Absolute Neutrophils (1.2-6.7) 10^3/uL Absolute Lymphocytes (1.2-3.4) 10^3/uL Absolute Monocytes (0.1-0.8) 10^3/uL Absolute Eosinophils (0.0-0.7) 10^3/uL Absolute Basophils (0.0-0.2) 10^3/uL PT (9.1-11.1) sec INR (0.9-1.1) APTT (23.6-32.8) sec Sodium (136-145) mmol/L Potassium (3.5-5.1) mmol/L Chloride (98-107) mmol/L Carbon Dioxide (21.0-32.0) mmol/L Anion Gap (3-11) mmol/L BUN (7-18) mg/dL Creatinine (0.55-1.02) mg/dL Est GFR (CKD-EPI 2020) (mL/min/1.73m2) Glucose (74-106) mg/dL Cancelled Calcium (8.5-10.1) mg/dL 9.2 Cancelled Magnesium (1.8-2.4) mg/dL 2.3 Cancelled Total Bilirubin (0.2-1.0) mg/dL 0.4 AST (15-37) U/L ALT (14-59) U/L Alkaline Phosphatase (46-116) U/L Troponin I (< or =60) ng/L Total Protein (6.4-8.2) g/dL Albumin (3.4-5.0) g/dL TSH (0.36-3.74) uIU/Ml Urine Color (Yellow) Urine Clarity (Clear) Urine pH (5-8) Ur Specific [place] (1.005-1.025) Urine Protein (Neg-Trace) mg/dL Urine Ketones (Negative) mg/dL Urine Blood (Negative) Urine Nitrite (Negative) Urine Bilirubin (Negative) Urine Urobilinogen (Up to 0.2) mg/dL Ur Leukocyte Esterase (Negative) Urine RBC (0-2) HPF Urine WBC (0-5) HPF Ur Epithelial Cells (Negative) HPF Urine Crystals (Negative) HPF Urine Bacteria (Negative) HPF Urine Casts (Negative) LPF Urine Mucus (Negative) Ur Culture Indicated? Urine Glucose (Negative) mg/dL Range/Units 01/24/24 01/24/24 01/24/24 08:05 08:05 08:05 WBC (4.4-10.8) 10^3/uL RBC (3.93-5.22) 10^6/uL Hgb (11.2-15.7) g/dL Hct (36.0-46.0) % MCV (80-95) fL MCH (27.0-33.0) pg MCHC (32.0-36.0) % RDW (11.7-14.6) % Plt Count (130-400) 10^3/uL MPV (8.0-11.0) fL Immature Gran % % Neutrophils % % Lymphocytes % % Monocytes % % Eosinophils % % Basophils % % Nucleated RBC % (0.0-0.3) % Absolute Neutrophils (1.2-6.7) 10^3/uL Absolute Lymphocytes (1.2-3.4) 10^3/uL Absolute Monocytes (0.1-0.8) 10^3/uL Absolute Eosinophils (0.0-0.7) 10^3/uL Absolute Basophils (0.0-0.2) 10^3/uL PT (9.1-11.1) sec INR (0.9-1.1) APTT (23.6-32.8) sec Sodium (136-145) mmol/L Potassium (3.5-5.1) mmol/L Chloride (98-107) mmol/L Carbon Dioxide (21.0-32.0) mmol/L Anion Gap (3-11) mmol/L BUN (7-18) mg/dL Creatinine (0.55-1.02) mg/dL Est GFR (CKD-EPI 2020) (mL/min/1.73m2) Glucose (74-106) mg/dL Calcium (8.5-10.1) mg/dL Magnesium (1.8-2.4) mg/dL Total Bilirubin (0.2-1.0) mg/dL Cancelled AST (15-37) U/L 18 Cancelled ALT (14-59) U/L 36 Cancelled Alkaline Phosphatase (46-116) U/L 86 Troponin I (< or =60) ng/L Total Protein (6.4-8.2) g/dL Albumin (3.4-5.0) g/dL TSH (0.36-3.74) uIU/Ml Urine Color (Yellow) Urine Clarity (Clear) Urine pH (5-8) Ur Specific [place] (1.005-1.025) Urine Protein (Neg-Trace) mg/dL Urine Ketones (Negative) mg/dL Urine Blood (Negative) Urine Nitrite (Negative) Urine Bilirubin (Negative) Urine Urobilinogen (Up to 0.2) mg/dL Ur Leukocyte Esterase (Negative) Urine RBC (0-2) HPF Urine WBC (0-5) HPF Ur Epithelial Cells (Negative) HPF Urine Crystals (Negative) HPF Urine Bacteria (Negative) HPF Urine Casts (Negative) LPF Urine Mucus (Negative) Ur Culture Indicated? Urine Glucose (Negative) mg/dL Range/Units 01/24/24 01/24/24 01/24/24 08:05 08:05 08:05 WBC (4.4-10.8) 10^3/uL RBC (3.93-5.22) 10^6/uL Hgb (11.2-15.7) g/dL Hct (36.0-46.0) % MCV (80-95) fL MCH (27.0-33.0) pg MCHC (32.0-36.0) % RDW (11.7-14.6) % Plt Count (130-400) 10^3/uL MPV (8.0-11.0) fL Immature Gran % % Neutrophils % % Lymphocytes % % Monocytes % % Eosinophils % % Basophils % % Nucleated RBC % (0.0-0.3) % Absolute Neutrophils (1.2-6.7) 10^3/uL Absolute Lymphocytes (1.2-3.4) 10^3/uL Absolute Monocytes (0.1-0.8) 10^3/uL Absolute Eosinophils (0.0-0.7) 10^3/uL Absolute Basophils (0.0-0.2) 10^3/uL PT (9.1-11.1) sec INR (0.9-1.1) APTT (23.6-32.8) sec Sodium (136-145) mmol/L Potassium (3.5-5.1) mmol/L Chloride (98-107) mmol/L Carbon Dioxide (21.0-32.0) mmol/L Anion Gap (3-11) mmol/L BUN (7-18) mg/dL Creatinine (0.55-1.02) mg/dL Est GFR (CKD-EPI 2020) (mL/min/1.73m2) Glucose (74-106) mg/dL Calcium (8.5-10.1) mg/dL Magnesium (1.8-2.4) mg/dL Total Bilirubin (0.2-1.0) mg/dL AST (15-37) U/L ALT (14-59) U/L Alkaline Phosphatase (46-116) U/L Cancelled Troponin I (< or =60) ng/L < 50 Total Protein (6.4-8.2) g/dL 7.5 Cancelled Albumin (3.4-5.0) g/dL 3.5 Cancelled TSH (0.36-3.74) uIU/Ml 1.54 Urine Color (Yellow) Urine Clarity (Clear) Urine pH (5-8) Ur Specific [place] (1.005-1.025) Urine Protein (Neg-Trace) mg/dL Urine Ketones (Negative) mg/dL Urine Blood (Negative) Urine Nitrite (Negative) Urine Bilirubin (Negative) Urine Urobilinogen (Up to 0.2) mg/dL Ur Leukocyte Esterase (Negative) Urine RBC (0-2) HPF Urine WBC (0-5) HPF Ur Epithelial Cells (Negative) HPF Urine Crystals (Negative) HPF Urine Bacteria (Negative) HPF Urine Casts (Negative) LPF Urine Mucus (Negative) Ur Culture Indicated? Urine Glucose (Negative) mg/dL Range/Units 01/24/24 08:59 WBC (4.4-10.8) 10^3/uL RBC (3.93-5.22) 10^6/uL Hgb (11.2-15.7) g/dL Hct (36.0-46.0) % MCV (80-95) fL MCH (27.0-33.0) pg MCHC (32.0-36.0) % RDW (11.7-14.6) % Plt Count (130-400) 10^3/uL MPV (8.0-11.0) fL Immature Gran % % Neutrophils % % Lymphocytes % % Monocytes % % Eosinophils % % Basophils % % Nucleated RBC % (0.0-0.3) % Absolute Neutrophils (1.2-6.7) 10^3/uL Absolute Lymphocytes (1.2-3.4) 10^3/uL Absolute Monocytes (0.1-0.8) 10^3/uL Absolute Eosinophils (0.0-0.7) 10^3/uL Absolute Basophils (0.0-0.2) 10^3/uL PT (9.1-11.1) sec INR (0.9-1.1) APTT (23.6-32.8) sec Sodium (136-145) mmol/L Potassium (3.5-5.1) mmol/L Chloride (98-107) mmol/L Carbon Dioxide (21.0-32.0) mmol/L Anion Gap (3-11) mmol/L BUN (7-18) mg/dL Creatinine (0.55-1.02) mg/dL Est GFR (CKD-EPI 2020) (mL/min/1.73m2) Glucose (74-106) mg/dL Calcium (8.5-10.1) mg/dL Magnesium (1.8-2.4) mg/dL Total Bilirubin (0.2-1.0) mg/dL AST (15-37) U/L ALT (14-59) U/L Alkaline Phosphatase (46-116) U/L Troponin I (< or =60) ng/L Total Protein (6.4-8.2) g/dL Albumin (3.4-5.0) g/dL TSH (0.36-3.74) uIU/Ml Urine Color (Yellow) Yellow Urine Clarity (Clear) Clear Urine pH (5-8) 6.0 Ur Specific [place] (1.005-1.025) 1.020 Urine Protein (Neg-Trace) mg/dL Negative Urine Ketones (Negative) mg/dL Negative Urine Blood (Negative) Trace-intact H Urine Nitrite (Negative) Negative Urine Bilirubin (Negative) Negative Urine Urobilinogen (Up to 0.2) mg/dL 0.2 Ur Leukocyte Esterase (Negative) Small H Urine RBC (0-2) HPF 0-2 Urine WBC (0-5) HPF 3-5 Ur Epithelial Cells (Negative) HPF Moderate Urine Crystals (Negative) HPF Negative Urine Bacteria (Negative) HPF Rare Urine Casts (Negative) LPF Negative Urine Mucus (Negative) Trace Ur Culture Indicated? No Urine Glucose (Negative) mg/dL Negative Medical Decision Making Emergent evaluation of dizziness. Differentials include arrhythmia, vertigo, viral syndrome, , electrolyte abnormality, anemia. VS are reassuring. Patient is neurologically intact without focal weakness. Steady gait. Negative Romberg. EKG reveals-sinus rhythm. Meclizine was given. I have a low suspicion for acute CVA, but symptoms could be secondary to posterior circulation issue, so I sent the patient for an MRI of her brain. Lab work was obtained. No leukocytosis or significant anemia. Her CMP did not demonstrate any concerning abnormalities and she does not have a urine infection. Her MRI was discussed with the radiologist. It did not demonstrate an acute stroke. She does have some fluid in her mastoid cells which may be the cause of her dizziness symptoms. The patient was given some IV fluids and Toradol and had complete resolution of her symptoms. May be early migrainous symptoms. Blood pressure did come down. Recommended blood pressure log and reevaluation by PCP. Strict return precautions advised. Medical Records Medical records reviewed: Yes I reviewed the patient's medical records. Lab Data Lab results reviewed: Yes I reviewed the patient's lab results. Quality:SDOH Health Related Social Needs: No Data to Display PFSH All Active Problems Hypertension (Chronic) Dizziness (Acute) Internal derangement of left knee (Acute) Vulvar abscess (Acute) Encounter for screening for other viral diseases (Acute) S/P colonoscopy (Acute ~04/29/19) 2014-Hx of polyps Encounter for screening colonoscopy (Acute) Tubular adenoma (Acute) Medical History Migraine headache Lichen sclerosus Renal insufficiency Obesity SHERLEY (obstructive sleep apnea) WITH CPAP HTN (hypertension) Metabolic syndrome CAD (coronary artery disease) Social phobia Adenomatous colon polyp Dyslipidemia Surgical History History of dermoid cyst excision FROM NOSE CHILD Hx of colonoscopy Social History Smoking/Tobacco Use Status: Never Smoking risk assessment performed?: Yes Substance use type: does not use Do you feel safe at home: Yes Do you feel safe in your relationship?: Yes
== END 2024-01-24 10:29 | disposition home or self-care (01) ==
PROVIDERS: Emergency Provider Emergency Medicine; PCP Family Medicine
DX: R42 Dizziness and giddiness (principal); I10 Essential (primary) hypertension; R27.8 Other lack of coordination
CPT/HCPCS: 36415; 80053; 96374; 99284; 70551; 81003; 81015; 83735; 84443; 84484; 85025; 85610; 85730; 99283; J1885